=== PATIENT | female | born 1985 | race African-American/Black ===

== ENCOUNTER 2023-03-25 19:46 | Emergency (ER) | payer MEDICAID ==
[~2023-03-25] VITALS: Ht 157.5 cm; Wt 165.0 kg
[2023-03-25 20:15] VITALS: BP 152/92; PULSE 109; RESP 20; TEMP 97.9
[2023-03-25] MEDS ORDERED: AMOX500C2 PO (23:38)
== END 2023-03-25 23:55 | disposition home or self-care (01) ==
LOC: EMS 19:51
DX: H66.93 Otitis media, unspecified, bilateral (principal)
CPT/HCPCS: 99283